=== PATIENT | male | born 1950 | race Caucasian/White ===

== ENCOUNTER → 2017-05-29 | Outpatient (CLI) | payer OTHER | LOC: FIMAGING 12:12 | PROVIDERS: ATTEND Neurological Surgery | DX: M51.36 Other intervertebral disc degeneration, lumbar region (principal); M46.96 Unspecified inflammatory spondylopathy, lumbar region; I72.3 Aneurysm of iliac artery ==

== ENCOUNTER 2017-08-15 05:47 | Inpatient (IN) | payer OTHER ==
[2017-08-15] MEDS ORDERED: ceFAZolin 2 GM/SWFI 2 GM/20 ML SYR IVP ONE ×2 (05:52→14:00)
[2017-08-15] MEDS ORDERED: GABAPENTIN 300 MG CAP PO ONE (05:52)
[2017-08-15] MEDS ORDERED: ACETAMINOPHEN 500 MG TAB PO ONE (05:52)
[2017-08-15] MEDS ORDERED: LIDOCAINE 1% 2 ML INJ ID PRN (05:55)
[2017-08-15] MEDS ORDERED: LR 1,000 ML IV ONE (05:55)
[2017-08-15] MEDS ORDERED: BUPIVACAINE 0.25% 30 ML SDV ONE (06:31)
[2017-08-15] MEDS ORDERED: CHLORHEXIDINE GLUC HIBICLENS 118 ML BTL TP ONE (06:31)
[2017-08-15] MEDS ORDERED: THROMBIN (BOVINE) 5,000 UNIT VIAL TP ONE (06:31)
--- NOTE | 2017-08-15 06:44 | PDHPUP ---
History & Physical Update H&P update statement: This history and physical update is based on an assessment of the patient which was completed after admission or registration (within 24 hours), but prior to the surgery/procedure. H&P update: H&P reviewed & patient examined, no change in patient's condition since H&P completed
[2017-08-15] MEDS ORDERED: THROMBIN (BOVINE) 20,000 UNIT VIAL TP ONE (06:47)
[2017-08-15] MEDS ORDERED: BACITRACIN 50,000 UNITS/10 ML SYR IRR ONE (06:59)
[2017-08-15] MEDS ORDERED: MIDAZOLAM 2 MG/2 ML VIAL IVP ONE (07:11)
--- NOTE | 2017-08-15 07:11 | PDANEPAE ---
ANE History of Present Illness DJD spondylolisthesis with Right side pain ANE Past Medical History - Cardiovascular History Hx Hypertension: No Hx Arrhythmias: No Hx Chest Pain: No Hx Coronary Artery / Peripheral Vascular Disease: No Hx CHF / Valvular Disease: No Hx Palpitations: No - Pulmonary History Hx COPD: No Hx Asthma/Reactive Airway Disease: No Hx Recent Upper Respiratory Infection: No Hx Oxygen in Use at Home: No Hx Sleep Apnea: No Sleep Apnea Screening Result - Last Documented: Negative Pulmonary History Comment: quit smoking 7-17; smoked 3/4 ppd x 50 yrs. - Neurologic History Hx Cerebrovascular Accident: No Hx Seizures: No Hx Dementia: No - Endocrine History Hx Diabetes: No - Renal History Hx Renal Disorders: No - Liver History Hx Hepatic Disorders: No - Neurological & Psychiatric Hx Hx Neurological and Psychiatric Disorders: Yes Neurological / Psychiatric History Comment: low back pain, R thigh numbness, weakness. - Cancer History Hx Cancer: No - Congenital Disorder History Hx Congenital Disorders: No - GI History Hx Gastrointestinal Disorders: No - Chronic Pain History Chronic Pain: Yes (back) - Surgical History Prior Surgeries: R rotator cuff. low back surgery-"cleaned out". cervical fusion x3. arm ORIF. biceps repair ANE Review of Systems Review of Systems: - Exercise capacity METS (RN): 4 METS ANE Patient History - Allergies Allergies/Adverse Reactions: No Known Allergies Allergy (Verified 07/18/17 11:07) - Home Medications Home Medications: Ibuprofen [Motrin (*)] 200 mg PO DAILY PRN 07/17/17 [Last Taken 08/01/17] [place]-3 Fatty Acids [Fish Oil 1000 mg (*)] 1,000 mg PO DAILY 07/17/17 [Last Taken 08/08/17] - NPO status NPO Since - Liquids (Date): 08/14/17 NPO Since - Liquids (Time): 21:30 NPO Since - Solids (Date): 08/14/17 NPO Since - Solids (Time): 19:00 - Anes Hx Anes Hx: no prior problems - Smoking Hx Smoking Status: Former smoker ANE Labs/Vital Signs - Vital Signs Blood Pressure: 140/75 Heart Rate: 64 Respiratory Rate: 16 O2 Sat (%): 94 Height: 175.26 cm Weight: 88.451 kg ANE Physical Exam - Airway Neck exam: FROM Mallampati Score: Class 2 Mouth exam: dentures - Pulmonary Pulmonary: clear to auscultation - Cardiovascular Cardiovascular: regular rate and rhythym ANE Anesthesia Plan Anesthesia Plan: general endotracheal anesthesia
[2017-08-15] MEDS ORDERED: MIDAZOLAM 2 MG/2 ML VIAL ONE (07:14)
[2017-08-15] MEDS ORDERED: REMIFENTANIL HCL 1 MG VIAL ONE ×3 (07:18→12:17)
[2017-08-15] MEDS ORDERED: fentaNYL 100 MCG/2 ML INJ ONE ×3 (07:18→15:07)
[2017-08-15] MEDS ORDERED: ROCURONIUM 50 MG/5 ML VIAL ONE (07:19)
[2017-08-15] MEDS ORDERED: DEXAMETHASONE 4 MG/ML VIAL ONE (07:19)
[2017-08-15] MEDS ORDERED: LIDOCAINE 2% 5 ML SDV ONE (07:19)
[2017-08-15] MEDS ORDERED: PROPOFOL 200 MG/20 ML VIAL ONE (07:19)
[2017-08-15] MEDS ORDERED: PROPOFOL/EMULSION 500 MG/50 ML BOTTLE IV ONE ×3 (07:19→12:18)
[2017-08-15] MEDS ORDERED: LACTULOSE 20 GM/30 ML UDCUP PO PRN (07:40)
[2017-08-15] MEDS ORDERED: ONDANSETRON DISINTEGRATING 4 MG TAB PO PRN (07:40)
[2017-08-15] MEDS ORDERED: NALOXONE HCL 0.4 MG/ML INJ IVP PRN ×2 (07:40→14:29)
[2017-08-15] MEDS ORDERED: MAGNESIUM HYDROXIDE 30 ML UDCUP PO PRN (07:40)
[2017-08-15] MEDS ORDERED: ONDANSETRON 4 MG/2 ML VIAL IVP PRN ×2 (07:40→14:29)
[2017-08-15] MEDS ORDERED: HYDROCODONE/APAP 5/325 TAB PO PRN (07:40)
[2017-08-15] MEDS ORDERED: BISACODYL 10 MG SUPP PR PRN (07:40)
[2017-08-15] MEDS ORDERED: HYDROmorphONE/DILAUDID 1 MG/ML INJ IVP PRN (07:40)
[2017-08-15] MEDS ORDERED: diphenhydrAMINE 25 MG CAP PO PRN (07:40)
[2017-08-15] MEDS ORDERED: NS W/ 20 KCl/L 1,000 ML IV SCH (07:45)
[2017-08-15] MEDS ORDERED: epHEDrine SULFATE 10 MG/ML SYR ONE ×2 (08:16→09:04)
[2017-08-15] MEDS ORDERED: ceFAZolin 1 GM VIAL ONE (08:44)
[2017-08-15] MEDS ORDERED: ONDANSETRON 4 MG/2 ML VIAL ONE (08:44)
[2017-08-15] MEDS ORDERED: ceFAZolin 2 GM/DEXTROSE 100 ML IV SCH (14:00)
[2017-08-15] MEDS ORDERED: PROMETHAZINE HCL 25 MG/ML INJ IVP PRN (14:29)
--- NOTE | 2017-08-15 15:03 | SOAPPROG ---
SOAP Progress Note Assessment/Plan: Post Op Visit S: Awake and alert. Pt states he has minimal back pain O: AFVSS/PERRLA/EOMI no droop CN 2-12 grossly intact +lt touch 5/5 BUE/BLE = CDI YULY in place A/P: 66 yo male that is s/p DLIF L2-L5 with PSF L2-L5 -orders in place -brace when out of bed -call with any questions or concerns -pt understands and agrees -pt seen by Dr Lambert -floor ok with anesthesia -RN to call me if pain needs are not met with IV/CYLINDER GRINDER/PO meds 08/15/17 15:01 Objective: Vital Signs Temp Pulse Resp BP Pulse Ox 36.5 C 64 16 140/75 H 94 08/15/17 06:14 08/15/17 07:11 08/15/17 07:11 08/15/17 07:11 08/15/17 07:11 ICD10 Worksheet Patient Problems: Problems Problem Status Onset Arthrodesis status Acute Lumbar radicular pain Acute Lumbar stenosis Acute - ICD10 Problem Qualifiers (1) Lumbar stenosis (2) Lumbar radicular pain (3) Arthrodesis status
--- NOTE | 2017-08-15 15:05 | POSTANESTH ---
Post Anesthetic Evaluation Cardiovascular Status: Similar to Pre-Op Cond Respiratory Status: Similar to Pre-op Cond. Level of Consciousness/Mental Status: Can Participate in Eval Pain Control: Adequate, Prn Tx Ordered Nausea/Vomiting Control: Adequate, Prn Tx Ordered Complications Possibly Related to Anesthesia: None Noted (Moving all ext and vision good)
[2017-08-15] MEDS ORDERED: HYDROmorphONE/DILAUDID 2 MG/ML INJ ONE (15:07)
[2017-08-15] MEDS: HYDROmorphONE/DILAUDID 2 MG/ML INJ IVP PRN ×5 (15:09→16:12)
[2017-08-15] MEDS: fentaNYL 100 MCG/2 ML INJ IVP PRN ×3 (15:09→15:40)
--- NOTE | 2017-08-15 15:55 | GOP ---
[f rep st] OPERATIVE REPORT DATE OF OPERATION: 08/15/2017 SURGEON: Winter Lambert MD NEUROSURGEON: Winter Lambert MD. REGIONAL SALES MANAGER: Hay Marvin PA-C. PREOPERATIVE DIAGNOSIS: Lumbar degenerative scoliosis; failed back syndrome; prior lumbar laminectom y, L2-3, L3-4, L4-5; severe right lumbosacral radiculopathy; and axial low back pain. POSTOPERATIVE DIAGNOSIS: Lumbar degenerative scoliosis; failed back syndrome; prior lumbar laminecto my, L2-3, L3-4, L4-5; severe right lumbosacral radiculopathy; and axial low back pain. PROCEDURE PERFORMED: Anterior lumbar intervertebral arthrodesis at L2-3, L3-4, L4-5 (27043, 03979 x2 , 10531 x3) with placement of biomechanical intervertebral device at each level, spinal stereotaxy. FINDINGS: ESTIMATED BLOOD LOSS: 75 cc. INDICATIONS: The patient is an elderly gentleman with a prior history of a multilevel lumbar laminec amari at L2-3, L3-4, L4-5, without complication, who developed progressively severe right lumbosacral radiculopathy, and x-rays and MRI demonstrated obliteration of the right neural foramen at L3-4 and L 4-5. The principal problem appeared to be L3-4 where there was really absolutely no room at all for the exiting L3 nerve root. There was some left-sided foraminal stenosis at L2-3 and an S-shaped scol iotic degenerative curve of the lumbar spine. I suggested an anterior lumbar intervertebral arthrode sis at L2-3, L3-4, L4-5, followed by posterior arthrodesis, as well as posterior decompression. The risks of the procedure, including risk of visceral injury, hernia, nerve injury, genitofemoral nerve injury, iliopsoas injury, hip pain, pseudoarthrosis, graft and hardware malposition, major vascular i njury, was discussed. He knew there was risk of these things occurring, but overall the risk was low and it is still reasonable to proceed with surgery. He did want to proceed. He knew there was a ch ance he would fail to improve despite our best surgical efforts. DESCRIPTION OF PROCEDURE: Patient was taken to the operating room, placed in supine position. Gener al anesthesia was begun. He was flipped into the right decubitus position, left side up with a shoul faith roll placed under the right iliac crest and an axillary roll placed. He was sterilely prepped an d draped. We placed a left iliac crest percutaneous pin, brought in the O arm sterilely to the field after he had been draped sterilely, and performed an O-arm spin. Using frameless stealth stereotaxy , we planned an anterolateral incision. The entry site at the skin level for the L2-3, L3-4 disk was convergent. L4-5 was divergent from this area, and we made a curvilinear incision in the left later al portion of the abdomen to accommodate this. However, our deep dissection would be independent in the 2 separate locations. We performed a muscle-splitting dissection down through all 3 layers of th e abdominal musculature, down to the transversalis fascia which was opened. We entered the retroperi toneal space, and we could easily palpate the psoas muscle. We swept the peritoneal contents off the psoas and worked in the retroperitoneum. We then did a muscle-splitting dissection through the infe rior portion of the incision in a more anterior location, down through the fascia in a similar way do wn to the retroperitoneal space. This is for the L4-5 approach, and it was more of an O lift type ap proach at L4-5. We then went back up to L2-3 where we carefully began to introduce a stereotactic di lator into the L2-3 disk. There was a large osteophyte coming off L3 wrapping over the 2-3 disk. We used a metal dilator to rodrigues this osteophyte down into the disk space and progressively dilated an d stimulated. We got good stimulation numbers, and we saw no evidence of nerve in this location. We removed our dilators and placed the retractor down over our central dilator, and we had good visuali zation of this large osteophyte which we fractured and removed. We did this with a 10 mm, followed b y the 2 cm . We then removed the L2-3 disk and roughened the subchondral bone to create ar throdesis at L2-3. We used a series of reamers to remove the disk, and then we chose initially an 8, then a 10, then a 12 mm x 55 mm trial. We ultimately decided for a 12 x 55 mm [place] cage. We packed it with osteo graft and BMP. We used a small BMP on the front and divided this between all 3 cages. We secured the Mastergraft in the L2-3 cage, followed by the BMP, and then we inserted under stereotactic guidance into the L2-3 disk. AP and lateral x-rays were taken and it was in excellent p osition. We then moved our retractor inferiorly along the psoas muscle. We could easily see the gen itofemoral nerve line on the anterior surface of the psoas. We then dilated anterior to this at the L3-4 disk using stereotaxis. We then opened our retractor. We had good visualization of the L3-4 sp gerry. We then introduced a 10 mm Eli, followed by the wide Eli, across and did a contralateral rele ase. We removed the disk and the cartilaginous endplates and roughened the subchondral bone to creat e arthrodesis. Here, we chose an 8, then a 10 mm x 55 mm trial and it was inserted at L3-4. I was h appy with the 10 mm device. The contralateral disk was very degenerative, and I did not think we cou ld go any larger than 10. It was bone on bone on that side, and considerable force had to be used to introduce the trial itself. We chose a 10 x 55 mm cage, packed it with Mastergraft and BMP, and it was inserted at L3-4 under stereotactic guidance, and I was happy with the position of the device, an d it was checked with AP and lateral x-rays. We then slowly removed our retractor from this approach , and there was no significant bleeding in this area. We then went to the more anterior oblique appr oac to L4-5, and we took the dilator, and under direct tactile feedback, introduced it down to the L 4-5 disk. The iliac artery was anterior, and we could visualize this on our 3D spin, and we went thr ough the anterior-most portion of the iliopsoas muscle. We were able to easily introduce the dilator into the 4-5 disk and stimulate circumferentially, and we had good stim numbers here as well. We th en dilated and we were looking at the L4-5 disk. Our approach to the disk was from a rostral to caud al approach. The disk then made a gentle turn and went from caudal to rostral in a direction that wa s less favorable. We introduced Quin across the disk, removed the disk and the cartilaginous endpla zaynab. We roughened the subchondral bone to create arthrodesis and then we sized. Here, I chose an 8 and then a 10 mm device. Given our slight bend and our trajectory at the lateral disk, I did not wan t to put a very large device here. There was some bleeding from the bone at L4-5, but it was really minimal. We ultimately decided on a 10 x 55 mm device which was packed with Mastergraft and BMP and it was inserted there without difficulty. AP and lateral x-rays were taken and it appeared to abrade the rostral surface of L5 on the right-hand side but it was in excellent position in the disk space and I was overall happy with the device. We decided to leave it in place and we inspected for any ev idence of bleeding and there was none. We then closed the deeper fascia with interrupted Vicryl sutu res. They were 0 Vicryls. We then closed each layer of the muscle with interrupted Vicryl sutures, followed by the more external fascia which was closed with interrupted Vicryl sutures. We then reapp roximated the skin. The stereotactic frame was removed from the left iliac crest and a single stitch was placed there. Steri-Strips were applied. This concluded procedure #1. We then had to repositi on the patient completely to begin the posterior approach to the spine and another operating room tab shaheen was brought into the room to do this. Please see the other dictation for the 2nd surgery that was performed on the same patient the same day. COMPLICATIONS: None. /[id number]/MODL
--- NOTE | 2017-08-15 16:05 | GOP ---
[f rep st] OPERATIVE REPORT DATE OF OPERATION: 08/15/2017 SURGEON: Winter Lambert MD NEUROSURGEON: Winter Lambert MD. TIP PRINTER: Hay Marvin PA-C. PREOPERATIVE DIAGNOSIS: Lumbar degenerative scoliosis, failed back syndrome, prior lumbar laminectom y, L2-L3, L3-L4, L4-L5, severe right lumbosacral radiculopathy, axial low back pain. POSTOPERATIVE DIAGNOSIS: Lumbar degenerative scoliosis, failed back syndrome, prior lumbar laminecto my, L2-L3, L3-L4, L4-L5, severe right lumbosacral radiculopathy, axial low back pain. PROCEDURE PERFORMED: Posterolateral arthrodesis only, L2-L3, L3-L4, L4-L5 (21266, 50746 x2), spinal stereotaxy, same-incision bone graft harvest, right L3-L4, L4-L5 complete facetectomy and foraminal d ecompression to the exiting L3 and L4 nerve roots (50759, 12593), same-incision bone graft harvest, p osterior segmental instrumentation, L2, L3, L4, L5 (35477). FINDINGS: ESTIMATED BLOOD LOSS: 250 cc. INDICATIONS: Please see the accompanying op report done on the same patient earlier today for a more detailed . The patient is an elderly gentleman with a prior history of a decompressive addison mbar laminectomy at 3 levels who had terrible unrelenting pain on the right leg, and I suggested a co mbined anterior and posterior approach to the spine. We performed the anterior approach to the spine earlier today and planned a posterior procedure for posterolateral arthrodesis as well as instrument ation to increase his chance of bony union, but also to perform decompressions on the right for the e xiting nerves at L3-L4, L4-L5. I had originally considered not doing the decompression, but after se eing the intraoperative images and the profound foraminal stenosis at L3-L4, L4-L5 on the right-hand side, I did decide to include foraminal decompressions and complete facetectomies on the right at L3- L4, L4-L5. The patient knew there was risk of nerve injury, spinal fluid leak, and pseudoarthrosis a nd adjacent segment disease, and he knew further surgery can be necessary. He also knew there was a chance that surgery would fail to take away his pain. He wanted to proceed despite the risks. DESCRIPTION OF PROCEDURE: The patient had previously had a direct anterolateral approach to the spin e with an anterior arthrodesis earlier in the day. He was flipped prone onto the David table. Car e was taken to pad all points of contact. He was sterilely prepped and draped in the usual fashion. He had a rather long midline incision, measuring approximately 8.5 cm. We used this incision, exten ded it rostrally for a couple of centimeters for a total length of about 11 cm. The subcutaneous tis sedrick was dissected using Bovie cautery down to the fascia, and a subperiosteal dissection was made elpidio n the inferior lamina of L1. The complete lamina of L2 was exposed. There were complete laminectomi es of L3 and L4, and we exposed all the way down to L5. There were huge facets on the right at L3-L4 , L4-L5. We denuded these hypertrophic facets. We denuded the L2-L3 facet. We found entry sites fo r L2, L3, L4, and L5 pedicle screws on the right-hand side. We preserved the L1-L2 facet joint. On the left-hand side, we also exposed the L2, L3, L4, and L5 entry sites for these pedicle screws. The re was less hypertrophy of the facet joints on the left compared to the right. We attached the [facility] reference frame to the L2 spinous process. We performed an O-arm spin and, using frameless [facility] stereotaxy, we placed pedicle screws bilaterally at L5, L4, L3, and L2. The right L4 pedicle was c ompletely cortical bone, and the technique used here was a Stealth-guided pedicle finder followed by the more standard tap and awl system that we normally use using the Micromidase system. The pedicles o f L5 were very large, and we chose 7.5 mm screws. We placed all the screws using the Micromidase Si[employer] Process[employer] m and then tested each screw. The lowest threshold stim was 16 mA at L5. We performed an O-arm spin . All the screws were in excellent position. There was no breach of the pedicle whatsoever. We the n took 100 mm rods and placed them down over the screws. We increased the bend of the inferiormost p ortion of the soniya at L3-L4, L4-L5 and had a straighter soniya at L2-L3. We distracted on the left at L2 -L3 and on the right at L3-L4, L4-L5 and then final tightened all the cap screws according to company specification. We decorticated all the posterolateral bone and facet joints bilaterally at L2-L3, L 3-L4, L4-L5 to create arthrodesis. We then performed a complete right L3-L4, L4-L5 facetectomy, ortega ving the SAP, IAP of L3-L4 and L4-L5 and decompressing the exiting L3 and L4 nerve roots with a trans facet decompression of the neural foramen. A nice decompression was performed. The exiting nerve ro ot was identified, and we were able to pass a ball-tip probe both into the canal and all the way out to the neural foramen at each level. A great decompression was performed. We took the bone harveste d from this decompression and used it as posterolateral bone grafting material, as well as a small am ount of BMP. We had opened an extra small for the posterior portion. This was placed posterolateral ly lateral to our hardware at L2-L3, L3-L4, L4-L5. We then placed a subfascial drain and then closed the incision in multiple layers using Vicryl sutures. There were no complications. COMPLICATIONS: None. INSTRUMENTATION USED: We used [employer] Solara 5.5 mm system with a 100 mm titanium soniya on each side . We used 7.5 mm screws at L5 and 6.5 mm screws elsewhere. COMPLICATIONS: None. We used an extra-small bone morphogenic protein. /[id number]/MODL
[2017-08-15] MEDS: METHOCARBAMOL 750 MG TAB PO PRN (16:33)
[2017-08-15] MEDS: oxyCODONE IR 5 MG TAB PO PRN ×2 (16:33→17:24)
--- NOTE | 2017-08-15 16:48 | PDMN ---
Medical Necessity Medical necessity: est los>2mn for post op care and recovery s/p DLIF l2/3, 3/4 , 4/5 w/ PSF L2-5, for pain control and in-hospital PT/OT; per order 08/15/17
[2017-08-15] MEDS: ACETAMINOPHEN 500 MG TAB PO SCH ×2 (16:56→22:45)
[2017-08-15] MEDS: SENNOSIDES/DOCUSATE SODIUM TAB PO SCH ×2 (16:56→20:16)
[2017-08-15] MEDS: FAMOTIDINE 20 MG TAB PO SCH ×2 (16:56→20:16)
[2017-08-15] MEDS: GABAPENTIN 300 MG CAP PO SCH (16:57)
[2017-08-15] MEDS: HYDROmorphone HCL/NS 0.5 MG/ML SYR IVP PRN (18:54)
[2017-08-15] MEDS: ceFAZolin 2 GM/SWFI 2 GM/20 ML SYR IVP SCH (20:16)
[2017-08-15] MEDS: morphINE PCA 30 MG/30 ML PCA IV PRN (22:02)
[2017-08-16] MEDS: HYDROmorphone HCL/NS 0.5 MG/ML SYR IVP PRN (01:11)
[2017-08-16] MEDS: METHOCARBAMOL 750 MG TAB PO PRN (01:11)
[2017-08-16] MEDS: GABAPENTIN 300 MG CAP PO SCH ×4 (01:28→20:54)
[2017-08-16] MEDS: ceFAZolin 2 GM/SWFI 2 GM/20 ML SYR IVP SCH (05:24)
[2017-08-16] MEDS: ACETAMINOPHEN 500 MG TAB PO SCH ×3 (05:25→20:53)
[2017-08-16 05:59] LABS: PLATELET COUNT 154 10^3/uL (150-400)
--- NOTE | 2017-08-16 06:59 | NEUSURGPN ---
Date of Surgery: 08/15/17 Post Op Day: 1 Assessment/Plan: Assessment: 66 yo male that is s/p DLIF L2-L5 with PSF L2-L5 POD #1 Plan: -pt with expected lower back pain, legs feel ok-some left anterior thigh pain from the DLIF approach likely -PT/OT pending -post op xrays pending -YULY in place and still productive -orders in place -pain control an issue still-will add MSContin for added pain control -brace when out of bed -call with any questions or concerns -pt understands and agrees -pt seen by Dr Lambert -RN to call me if pain needs are not met with IV/EXPLOSIVES OPERATOR/PO meds Subjective: Awake and alert. NAD. Pt with expected lower back pain. No land/neck/chest/abd or gu complaints. No f/c/n/v/d. Objective: AFVSS/PERRLA/EOMI no droop CN 2-12 grossly intact +lt touch 5/5 BUE/BLE = CDI YULY in place Neuro Check Frequency: per routine Urinary Catheter in Place: No Catheter Insertion Date: 08/15/17 - Physician Discussed Patient with : Fausto Patient Seen by : Fausto Neurosurgery Physical Exam - Vitals, I&O, Labs I and O 08/15/17 08/16/17 08/17/17 05:59 05:59 05:59 Intake Total 2550 Output Total 2335 Balance 215 Weight 88.45 kg Intake: Oral (ml) 750 IV Intake (ml) 1800 Output: Urine (ml) 1475 Catheter 1475 Estimated Blood Loss (ml) 250 YULY Drain Output (ml) 610 Back David Zamora 610 Other: Number of Voids Catheter 1 Vital Signs Temp Pulse Resp BP Pulse Ox 36.9 C 81 16 104/55 L 90 L 08/16/17 06:00 08/16/17 06:00 08/16/17 06:00 08/16/17 06:00 08/16/17 06:00 Laboratory Results 08/16/17 05:27 08/16/17 05:27 ICD10 Worksheet Patient Problems: Problems Problem Status Onset Arthrodesis status Acute Lumbar radicular pain Acute Lumbar stenosis Acute - ICD10 Problem Qualifiers (1) Lumbar stenosis (2) Lumbar radicular pain (3) Arthrodesis status
[2017-08-16] MEDS: morphINE PCA 30 MG/30 ML PCA IV PRN (07:04)
[2017-08-16] MEDS: POLYETHYLENE GLYCOL 3350 17 GM PKT PO PRN (07:29)
[2017-08-16] MEDS: morphINE SR 15 MG TAB PO SCH ×3 (07:29→20:43)
[2017-08-16] MEDS: SENNOSIDES/DOCUSATE SODIUM TAB PO SCH ×2 (07:29→20:44)
[2017-08-16] MEDS: FAMOTIDINE 20 MG TAB PO SCH ×2 (07:33→20:44)
[2017-08-16] MEDS ORDERED: HYDROmorphONE/DILAUDID 4 MG TAB PO ONE (10:45)
--- NOTE | 2017-08-16 11:46 | ASMTCMCOM ---
CM Note CM Note Notes: Chart reviewed for dc planning purposes. Per PT and OT HHC PT recommended. Referrals via allscripts to [facility] and [facility]. Patient agreeable to [facility] services and states he has no preference. CM to follow. Plan: Home with HHC Date Signed: 08/16/2017 11:45 AM Electronically Signed By:Brigida Garcia RN
[2017-08-16] MEDS ORDERED: NALOXONE HCL 0.4 MG/ML INJ IVP PRN (12:57)
[2017-08-16] MEDS ORDERED: HYDROmorphONE/DILAUDID 6 MG/30 ML PCA IV PRN (12:57)
[2017-08-16] MEDS ORDERED: HYDROmorphONE/DILAUDID 2 MG TAB PO PRN (14:00)
[2017-08-17] MEDS: GABAPENTIN 300 MG CAP PO SCH ×3 (05:03→21:00)
[2017-08-17] MEDS: ACETAMINOPHEN 500 MG TAB PO SCH ×3 (05:27→20:59)
[2017-08-17] MEDS: FAMOTIDINE 20 MG TAB PO SCH ×2 (09:23→21:00)
[2017-08-17] MEDS: SENNOSIDES/DOCUSATE SODIUM TAB PO SCH ×2 (09:23→21:00)
[2017-08-17] MEDS: POLYETHYLENE GLYCOL 3350 17 GM PKT PO PRN (09:24)
[2017-08-17] MEDS: morphINE SR 15 MG TAB PO SCH ×2 (09:24→21:01)
[2017-08-17] MEDS: METHOCARBAMOL 750 MG TAB PO PRN ×2 (09:32→13:49)
--- NOTE | 2017-08-17 09:45 | NEUSURGPN ---
Assessment/Plan: Assessment: 66 yo male that is s/p DLIF L2-L5 with PSF L2-L5 POD #2 Plan: -pt with expected lower back pain, legs feel ok-some left anterior thigh pain from the DLIF approach likely -PT/OT -post op xrays demonstrate intact hardware -Will remove YULY drain today -pain control an issue still-will add MSContin for added pain control -brace when out of bed -MsCOntin increased, will try to wean NOODLE MAKER today and transition to orals. -call with any questions or concerns -pt understands and agrees -Discussed with Dr Lambert Subjective: low back pain, denies new leg pain Objective: NAD A&Ox3 MAEx4 5/5 and equal in BUE and BLE. Incision c/d/i YULY drain serosanguineous Catheter Insertion Date: 08/15/17 - Physician Discussed Patient with : Fausto Neurosurgery Physical Exam - Vitals, I&O, Labs I and O 08/16/17 08/17/17 08/18/17 05:59 05:59 05:59 Intake Total 2550 2960 Output Total 2335 1750 45 Balance 215 1210 -45 Weight 88.45 kg Intake: Oral (ml) 750 1350 IV Intake (ml) 1800 1610 Output: Urine (ml) 1475 1475 Catheter 1475 1475 Estimated Blood Loss (ml) 250 YULY Drain Output (ml) 610 275 45 Back David Zamora [phone] 45 Other: Intake Quantity Yes Sufficient Output Comment Catheter straight cath Number of Voids Catheter 1 1 Bladder Scan Volume (ml) Toilet 616 Post Void Residual Scan Volume (ml) Catheter 0 Vital Signs Temp Pulse Resp BP Pulse Ox 37.7 C 75 16 106/90 H 90 L 08/17/17 07:49 08/17/17 07:49 08/17/17 07:49 08/17/17 07:49 08/17/17 07:49 Laboratory Results 08/16/17 05:27 08/16/17 05:27 ICD10 Worksheet Patient Problems: Problems Problem Status Onset Arthrodesis status Acute Lumbar radicular pain Acute Lumbar stenosis Acute
[2017-08-17] MEDS ORDERED: morphINE SR 15 MG TAB PO ONE (10:00)
[2017-08-17] MEDS: oxyCODONE IR 5 MG TAB PO PRN ×4 (12:01→21:01)
--- NOTE | 2017-08-17 14:17 | ASMTCMCOM ---
CM Note CM Note Notes: Today PT/OT rec SNF, spoke w pt and about this rec. Pt lives in [place] so he was provided a [place] SNF list and [facility] SNFs to consider. Pt to discuss d/c options with friends/family. Pt optimistic he will progress and be able to d/c home with home care. D/c plan of care: Home with [facility] vs SNF Date Signed: 08/17/2017 02:16 PM Electronically Signed By:CHONG Chan
[2017-08-18] MEDS: GABAPENTIN 300 MG CAP PO SCH (05:11)
[2017-08-18] MEDS: ACETAMINOPHEN 500 MG TAB PO SCH (05:11)
[2017-08-18] MEDS: oxyCODONE IR 5 MG TAB PO PRN ×2 (05:13→12:27)
[2017-08-18] MEDS: morphINE SR 15 MG TAB PO SCH (08:25)
[2017-08-18] MEDS: SENNOSIDES/DOCUSATE SODIUM TAB PO SCH (08:26)
[2017-08-18] MEDS: FAMOTIDINE 20 MG TAB PO SCH (08:26)
[2017-08-18] MEDS: POLYETHYLENE GLYCOL 3350 17 GM PKT PO PRN (08:26)
--- NOTE | 2017-08-18 08:52 | SOAPPROG ---
NE[facility] Progress Note Assessment/Plan: Assessment/Plan: Assessment: 66 yo male that is s/p DLIF L2-L5 with PSF L2-L5 POD #3. Doing well and thinks he wants to go home. Plan: -pt with expected lower back pain, legs feel ok-some left anterior thigh pain from the DLIF approach likely -PT/OT -post op xrays demonstrate intact hardware -MSContin for added pain control is helping. - will dc home with that today -brace when out of bed -call with any questions or concerns -pt understands and agrees Subjective: low back pain, denies new leg pain. He is in bedside chair eating breakfast Objective: NAD A&Ox3 MAEx4 5/ and equal in BUE and BLE. Dressing: CDI Catheter Insertion Date: 08/15/17. no bill in place 08/18/17 08:52 Objective: Vital Signs Temp Pulse Resp BP Pulse Ox 37.1 C 81 18 117/76 90 L 08/18/17 07:53 08/18/17 07:53 08/18/17 07:53 08/18/17 07:53 08/18/17 07:53 Laboratory Results 08/16/17 05:27 08/16/17 05:27 08/17/17 08/18/17 08/19/17 05:59 05:59 05:59 Intake Total 2960 1500 Output Total 1750 2096 Balance 1210 -595 ICD10 Worksheet Patient Problems: Problems Problem Status Onset Arthrodesis status Acute Lumbar radicular pain Acute Lumbar stenosis Acute
[2017-08-18] MEDS ORDERED: ENOXAPARIN 40 MG/0.4 ML SYR SC SCH (09:00)
--- NOTE | 2017-08-18 10:22 | ASMTLACE ---
LACE Length of stay for Answers: 3 days current admission Acuity / Level of Answers: Yes Care: Did the patient have an inpatient admission? Comorbidities - select Answers: Opioid dependence all that apply / Chronic pain # of Emergency department Answers: 0 visits in the last 6 months Score: 10 Date Signed: 08/18/2017 10:21 AM Electronically Signed By:CHONG Chan
--- NOTE | 2017-08-18 11:20 | PDIAF ---
- Diagnosis Diagnosis: L2-5 fusion/ lumbar DJD/Stenosis Code Status: Full Code - Medication Management Discharge Medications: Medications to Continue on Transfer [place]-3 Fatty Acids [Fish Oil 1000 mg (*)] 1,000 mg PO DAILY 07/17/17 [Last Taken 08/08/17] Acetaminophen [Tylenol ES 500 mg (*)] 1,000 mg PO Q8HRS tab 08/18/17 [Last Taken Unknown] Methocarbamol [Robaxin 750 mg (*)] 750 mg PO QID PRN #60 tab 08/18/17 [Last Taken Unknown] Polyethylene Glycol 3350 [Miralax 17 gm (*)] 17 gm PO DAILY PRN pkt 08/18/17 [ Last Taken Unknown] Sennosides/Docusate Sodium [Senokot-S] 1 - 2 tab PO BID tab 08/18/17 [Last Taken Unknown] morphINE SR [Ms Contin/Oramorph 15 mg (*)] 15 mg PO BID #30 tab 08/18/17 [Last Taken Unknown] oxyCODONE IR [Oxycodone Ir (*)] 5 - 15 mg PO Q3H PRN #60 tab 08/18/17 [Last Taken Unknown] Discharge Medications: Refer to the Discharge Home Medication list for PRN reason. PICC Care - Routine: N/A - Orders Services needed: Home Care, Physical Therapy, Occupational Therapy Home Care Face to Face: I certify that this patient was under my care and that I had the required [id number] encounter meeting the encounter requirements on the discharge day. My findings support the fact that the patient is homebound as defined in Home Care Face to Face Continued: CMS Chapter 7 Medicare Benefits Manual 30.1.1 , The condition of the patient is such that there exists a normal inability to leave home and consequently, leaving home would require a considerable and taxing effort. Diet Recommendation: no restrictions on diet Diet Texture: Regular Texture Diet Dee: Not applicable Artem Stockings Discontinue Date: 08/22/17 Wound Care Instructions: check incision daily. call Dr. Lambert with any redness , drainage or pain Activity/Weight Bearing Restrictions: hussain bending, twisting or lifting over 10 lbs. wear LSO when out of bed Additional Instructions: DC home with lumbar fusion instructions wear LSO when Out of bed leni [phone] to confirm post op appt and with any questions/concerns - Follow Up Care Current Providers and Referrals: Gurmeet Beatty MD [Primary Care Provider] - Shane Lambert MD [Medical Doctor] -
[2017-08-18 11:50] VITALS: BP 123/59
--- NOTE | 2017-08-18 13:53 | ASDISCHSUM ---
Discharge Information Plan Status:Home with Home Health Medically Cleared to Leave: Discharge Date:08/18/2017 01:00 PM CM D/C Disposition:Home Health Service ADT D/C Disposition:[id number] Projected Discharge Date:08/19/2017 11:00 AM Transportation at D/C:Family Discharge Delay Reason: Follow-Up Date:08/19/2017 11:00 AM Discharge Slot: Final Diagnosis: Placement Information Referral Type:*Home Health Care Services Referral ID:[id number] Provider Name:[facility] [place] Address 1:[address] [place] [address] Address 2: City:[place] Selection Factors: State:[place] Patient Contact Information Contact Name:MANFRED Relationship: Address:[address] City:[place] Alternate Phone: State/Zip Code:[place] [address] Email: Financial Information Financial Class:Medicare Primary Plan Desc:MEDICARE INPATIENT Primary Plan Number:[id number] Secondary Plan Desc:[facility] Secondary Plan Number:[id number] Assessment Information LACE LACE Length of stay for Answers: 3 days current admission Acuity / Level of Answers: Yes Care: Did the patient have an inpatient admission? Comorbidities - select Answers: Opioid dependence all that apply / Chronic pain # of Emergency department Answers: 0 visits in the last 6 months Score: 10 Date Signed: 08/18/2017 10:21 AM Electronically Signed By:CHONG Chan [facility] CM Progress Note CM Note CM Note Notes: Chart reviewed for dc planning purposes. Per PT and OT HHC PT recommended. Referrals via allscripts to [facility] and [facility] Patient agreeable to [facility] services and states he has no preference. CM to follow. Plan: Home with HHC Date Signed: 08/16/2017 11:45 AM Electronically Signed By:Brigida Garcia RN [facility] CM Progress Note CM Note CM Note Notes: Today PT/OT rec SNF, spoke w pt and about this rec. Pt lives in [place] so he was provided a [place] SNF list and [facility] SNFs to consider. Pt to discuss d/c options with friends/family. Pt optimistic he will progress and be able to d/c home with home care. D/c plan of care: Home with [facility] vs SNF Date Signed: 08/17/2017 02:16 PM Electronically Signed By:CHONG Chan [facility] CM Progress Note CM Note CM Note Notes: Today PT rec HHC vs. outpatient, pt still wants [facility], orders sent in Allscripts. Date Signed: 08/18/2017 01:52 PM Electronically Signed By:CHONG Chan Intervention Information
== END 2017-08-18 13:00 | disposition home health service (06) | DRG 455 ==
LOC: F3N 05:47
PROVIDERS: ADMIT Neurological Surgery; ATTEND Neurological Surgery
PROC: 8E0WXBF Computer Assisted Procedure of Trunk Region, With Fluoroscopy (ICD-10-PCS; principal; 2017-08-15 07:30)
PROC: 0SG10A0 Fusion of 2 or more Lumbar Vertebral Joints with Interbody Fusion Device, Anterior Approach, Anterior Column, Open Approach (ICD-10-PCS; principal; 2017-08-15 07:30)
PROC: 0SG1071 Fusion of 2 or more Lumbar Vertebral Joints with Autologous Tissue Substitute, Posterior Approach, Posterior Column, Open Approach (ICD-10-PCS; principal; 2017-08-15 07:30)
PROC: 01N90ZZ Release Lumbar Plexus, Open Approach (ICD-10-PCS; principal; 2017-08-15 07:30)
PROC: 4A1004G Monitoring of Central Nervous Electrical Activity, Intraoperative, Open Approach (ICD-10-PCS; principal; 2017-08-15 07:30)
PROC: 0SB20ZZ Excision of Lumbar Vertebral Disc, Open Approach (ICD-10-PCS; principal; 2017-08-15 07:30)
DX: M41.9 Scoliosis, unspecified (principal); M96.1 Postlaminectomy syndrome, not elsewhere classified; M54.17 Radiculopathy, lumbosacral region; Z87.891 Personal history of nicotine dependence; Z98.1 Arthrodesis status
CPT/HCPCS: 97116-GP; 97161-GP; 97166-GO; 97530-GP; 97535-GO; C1713; G8978-GP-CK; G8979-GP-CI; G8987-GO-CK; G8988-GO-CI; J0171; J0690; J1100; J1170; J1650; J2250; J2270; J2405; J2704; J3010